=== PATIENT | female | born 1980 | race Caucasian/White ===

== ENCOUNTER 2016-04-29 19:02 | Inpatient (IN) | payer MEDICARE, MEDICAID ==
[~2016-04-29] VITALS: Ht 167.6 cm; Wt 72.7 kg
[~2016-04-29 19:02] MED LIST: ASPI81 PO; CARI350 PO; CITA20TA9 PO; GABA-533 PO; IBUP-1547 PO
[2016-04-29] MEDS ORDERED: ChlorproMAZINE HCL 100 MG TABLET PO PRN (22:45)
[2016-04-29] MEDS ORDERED: DiphenhydrAMINE HCL 50 MG/ML VIAL IM ONE (22:45)
[2016-04-29] MEDS ORDERED: LORazepam 1 MG TABLET PO PRN (22:45)
[2016-04-29] MEDS ORDERED: TEMAZEPAM 15 MG CAPSULE PO PRN (22:45)
[2016-04-29] MEDS ORDERED: LORazepam 2 MG/ML VIAL IM ONE (22:45)
[2016-04-29] MEDS ORDERED: DOCU250C91 PO (23:42)
[2016-04-30 00:35] VITALS: BP 95/56
[2016-04-30] MEDS ORDERED: LORazepam 1 MG TABLET PO PRN ×2 (03:15→04:00)
[2016-04-30] MEDS ORDERED: IBUPROFEN 600 MG TABLET PO PRN (08:45)
[2016-04-30] MEDS ORDERED: MAGNESIUM HYDROXIDE SUSPENSION 30 ML UDCUP PO PRN (08:45)
[2016-04-30] MEDS ORDERED: ONDANSETRON HCL 4 MG TABLET PO PRN (08:45)
[2016-04-30] MEDS ORDERED: BACITRACIN 28.4 GM OINTMENT TP PRN (08:45)
[2016-04-30] MEDS ORDERED: LOPERAMIDE HCL 2 MG CAPSULE PO PRN (08:45)
[2016-04-30] MEDS ORDERED: MAG HYDROX/AL HYDROX/SIMETH ES 30 ML SUSPENSION UDCUP PO PRN (08:45)
[2016-04-30] MEDS ORDERED: CloNIDine HCL 0.1 MG TABLET PO PRN (08:45)
[2016-04-30] MEDS ORDERED: ALBUTEROL SULFATE HFA 90 MCG/PUFF 8 GM INHALER IH PRN (08:45)
[2016-04-30] MEDS ORDERED: PETROLATUM,WHITE 71 GM JELLY TP PRN (08:45)
[2016-04-30] MEDS ORDERED: BENZOCAINE/MENTHOL LOZENGE [8 LOZENGES/PACKET] MM PRN (08:45)
[2016-04-30] MEDS ORDERED: ACETAMINOPHEN 325 MG TABLET PO PRN (08:45)
[2016-04-30] MEDS: SERTRALINE HCL 100 MG TABLET PO SCH ×4 (09:00→20:51)
[2016-04-30] MEDS: DIVALPROEX SODIUM 500 MG ER TABLET PO SCH (09:23)
[2016-04-30] MEDS: CHOLECALCIFEROL (VIT D3) 1,000 UNITS TABLET PO SCH (09:23)
[2016-04-30] MEDS: GABAPENTIN 400 MG CAPSULE PO SCH ×3 (09:23→17:27)
[2016-04-30 10:11] LABS: BASOPHILS % (AUTO) 0.8 % (0.0-2.0); HEMATOCRIT 38.7 % (36-46); HEMOGLOBIN 13.2 g/dL (12.0-16.0); LYMPHOCYTES # (AUTO) 1.3 K/uL (1.0-4.8); LYMPHOCYTES % (AUTO) 27.4 % (22.0-44.0); MEAN CORPUSCULAR HEMOGLOBIN 31.4 pg (26.0-34.0); MEAN CORPUSCULAR HGB CONC 34.1 G/dL (31.0-37.0); MEAN CORPUSCULAR VOLUME 92 fL (80-100); MONOCYTES # (AUTO) 0.5 K/uL (0.1-1.0); MONOCYTES % (AUTO) 10.7 % (2.0-9.0); NEUTROPHILS # (AUTO) 2.8 K/uL (1.8-7.7); NEUTROPHILS % (AUTO) 58.1 % (40.0-70.0); PLATELET COUNT (AUTO) 212 K/uL (150-450); RED BLOOD CELL COUNT(AUTO) 4.21 MIL/uL (4.00-5.20); RED CELL DISTRIBUTION WIDTH 12.1 % (11.5-14.5); WHITE BLOOD COUNT (AUTO) 4.8 K/uL (4.5-11.0)
[2016-04-30 10:53] LABS: ALANINE AMINOTRANSFERASE 32 U/L (12-78); ALBUMIN 3.1 g/dL (3.4-5.0); ANION GAP 4 mmol/L (8-16); ASPARTATE AMINOTRANSFERASE 29 U/L (15-37); BILIRUBIN,TOTAL 0.2 mg/dL (0.1-1.0); CALCIUM, TOTAL 8.5 mg/dL (8.8-10.5); CARBON DIOXIDE 31 mmol/L (22-29); CHLORIDE 103 mmol/L (98-107); CHOL/HDL RATIO 5.4 (3.9-5.7); GLOMERULAR FILTR. RATE CALC > 60 mL/min (>60); POTASSIUM 4.1 mmol/L (3.5-5.1); SODIUM SERUM 138 mmol/L (136-145); TOTAL PROTEIN, SERUM 6.1 g/dL (6.4-8.2); UREA NITROGEN, BLOOD 10 mg/dL (7-18)
[2016-04-30] MEDS ORDERED: MORPHINE SULFATE 60 MG PO PRN (18:45)
[2016-04-30] MEDS: NICOTINE 14 MG/24 HOUR PATCH TD SCH (20:43)
[2016-04-30] MEDS: CARISOPRODOL 350 MG TABLET PO SCH (20:43)
[2016-05-01] VITALS (8 sets, daily range): BP systolic 111–129; BP diastolic 65–92
[2016-05-01] MEDS: HYDROmorphone HCL 2 MG TABLET PO PRN ×4 (01:49→23:49)
[2016-05-01] MEDS: IBUPROFEN 600 MG TABLET PO PRN ×2 (03:44→13:00)
[2016-05-01] MEDS: GABAPENTIN 400 MG CAPSULE PO SCH ×3 (06:07→17:35)
[2016-05-01] MEDS: MORPHINE SULFATE 60 MG PO PRN ×2 (06:47→21:00)
[2016-05-01] MEDS: SERTRALINE HCL 100 MG TABLET PO SCH (08:27)
[2016-05-01] MEDS: DIVALPROEX SODIUM 500 MG ER TABLET PO SCH (08:28)
[2016-05-01] MEDS: CARISOPRODOL 350 MG TABLET PO SCH ×3 (08:28→22:06)
[2016-05-01] MEDS: ASPIRIN 81 MG CHEWABLE TABLET PO SCH (08:28)
[2016-05-01] MEDS: NICOTINE 14 MG/24 HOUR PATCH TD SCH (08:29)
[2016-05-01] MEDS: CHOLECALCIFEROL (VIT D3) 1,000 UNITS TABLET PO SCH (08:29)
[2016-05-01] MEDS ORDERED: IBUPROFEN 600 MG TABLET PO PRN (09:00)
[2016-05-02] VITALS: BP 114/70
[2016-05-02] MEDS: GABAPENTIN 400 MG CAPSULE PO SCH ×3 (07:15→17:15)
[2016-05-02] MEDS: CHOLECALCIFEROL (VIT D3) 1,000 UNITS TABLET PO SCH (08:11)
[2016-05-02] MEDS: ASPIRIN 81 MG CHEWABLE TABLET PO SCH (08:11)
[2016-05-02] MEDS: CARISOPRODOL 350 MG TABLET PO SCH ×3 (08:12→21:26)
[2016-05-02] MEDS: NICOTINE 14 MG/24 HOUR PATCH TD SCH (08:12)
[2016-05-02] MEDS: DIVALPROEX SODIUM 500 MG ER TABLET PO SCH (09:00)
[2016-05-02] MEDS: DULoxetine HCL 30 MG CAPSULE PO SCH (09:00)
[2016-05-02 09:04] VITALS: BP 110/60
[2016-05-02] MEDS: HYDROmorphone HCL 2 MG TABLET PO PRN ×2 (09:11→16:06)
[2016-05-02] MEDS: MORPHINE SULFATE 60 MG PO SCH ×2 (10:29→22:30)
[2016-05-02] MEDS: IBUPROFEN 600 MG TABLET PO PRN ×2 (12:30→18:56)
[2016-05-02 16:06] VITALS: BP 118/71
[2016-05-02] MEDS: DOCUSATE SODIUM 250 MG CAPSULE PO SCH (17:15)
[2016-05-02] MEDS: HydrOXYzine PAMOATE 50 MG CAPSULE PO PRN ×2 (17:30→22:15)
[2016-05-02 18:55] VITALS: BP 117/69
[2016-05-03 03:35] VITALS: BP 105/70
[2016-05-03] MEDS: HYDROmorphone HCL 2 MG TABLET PO PRN ×3 (03:38→19:05)
[2016-05-03] MEDS: GABAPENTIN 400 MG CAPSULE PO SCH ×3 (07:15→16:10)
[2016-05-03] MEDS: CHOLECALCIFEROL (VIT D3) 1,000 UNITS TABLET PO SCH (08:47)
[2016-05-03] MEDS: CARISOPRODOL 350 MG TABLET PO SCH ×3 (08:47→20:26)
[2016-05-03] MEDS: DOCUSATE SODIUM 250 MG CAPSULE PO SCH ×2 (08:47→16:10)
[2016-05-03] MEDS: ASPIRIN 81 MG CHEWABLE TABLET PO SCH (08:48)
[2016-05-03] MEDS: DULoxetine HCL 30 MG CAPSULE PO SCH ×2 (08:48→09:00)
[2016-05-03] MEDS: NICOTINE 14 MG/24 HOUR PATCH TD SCH (08:49)
[2016-05-03] MEDS: SERTRALINE HCL 100 MG TABLET PO SCH (08:49)
[2016-05-03] MEDS: MORPHINE SULFATE 60 MG PO SCH ×2 (08:53→21:15)
[2016-05-03] MEDS ORDERED: ASPIRIN 81 MG CHEWABLE TABLET PO SCH (09:00)
[2016-05-03] MEDS: HydrOXYzine PAMOATE 50 MG CAPSULE PO PRN ×2 (09:10→16:10)
[2016-05-03 12:24] VITALS: BP 139/85
[2016-05-03 16:00] VITALS: BP 116/89
[2016-05-03 19:05] VITALS: BP 113/82
[2016-05-04 00:55] VITALS: BP 116/70
[2016-05-04] MEDS: HYDROmorphone HCL 2 MG TABLET PO PRN ×3 (01:22→16:20)
[2016-05-04] MEDS: IBUPROFEN 600 MG TABLET PO PRN ×4 (01:22→23:45)
[2016-05-04] MEDS: GABAPENTIN 400 MG CAPSULE PO SCH ×3 (06:20→16:07)
[2016-05-04 08:00] VITALS: BP 121/76
[2016-05-04] MEDS: DULoxetine HCL 30 MG CAPSULE PO SCH (09:00)
[2016-05-04] MEDS: MORPHINE SULFATE 60 MG PO SCH ×2 (09:16→20:58)
[2016-05-04] MEDS: HydrOXYzine PAMOATE 50 MG CAPSULE PO PRN (09:17)
[2016-05-04] MEDS: NICOTINE 14 MG/24 HOUR PATCH TD SCH (09:17)
[2016-05-04] MEDS: ASPIRIN 81 MG CHEWABLE TABLET PO SCH (09:17)
[2016-05-04] MEDS: DOCUSATE SODIUM 250 MG CAPSULE PO SCH ×2 (09:17→16:06)
[2016-05-04] MEDS: SERTRALINE HCL 100 MG TABLET PO SCH (09:17)
[2016-05-04] MEDS: CHOLECALCIFEROL (VIT D3) 1,000 UNITS TABLET PO SCH (09:17)
[2016-05-04] MEDS: CARISOPRODOL 350 MG TABLET PO SCH ×3 (09:22→20:58)
[2016-05-04 16:19] VITALS: BP 131/86
[2016-05-05] MEDS: HYDROmorphone HCL 2 MG TABLET PO PRN ×2 (00:41→09:23)
[2016-05-05] MEDS: GABAPENTIN 400 MG CAPSULE PO SCH ×3 (06:19→17:30)
[2016-05-05] MEDS: NICOTINE 14 MG/24 HOUR PATCH TD SCH (09:00)
[2016-05-05] MEDS: MORPHINE SULFATE 60 MG PO SCH ×2 (09:23→22:18)
[2016-05-05] MEDS: DOCUSATE SODIUM 250 MG CAPSULE PO SCH ×2 (09:23→17:30)
[2016-05-05] MEDS: SERTRALINE HCL 100 MG TABLET PO SCH (09:23)
[2016-05-05] MEDS: ASPIRIN 81 MG CHEWABLE TABLET PO SCH (09:23)
[2016-05-05] MEDS: CARISOPRODOL 350 MG TABLET PO SCH ×3 (09:23→22:18)
[2016-05-05] MEDS: IBUPROFEN 600 MG TABLET PO PRN (09:24)
[2016-05-05] MEDS: CHOLECALCIFEROL (VIT D3) 1,000 UNITS TABLET PO SCH (09:28)
[2016-05-06] MEDS: GABAPENTIN 400 MG CAPSULE PO SCH ×3 (06:54→16:24)
[2016-05-06 08:00] VITALS: BP 135/91
[2016-05-06] MEDS: CARISOPRODOL 350 MG TABLET PO SCH ×4 (09:00→20:21)
[2016-05-06] MEDS: ASPIRIN 81 MG CHEWABLE TABLET PO SCH (09:04)
[2016-05-06] MEDS: DOCUSATE SODIUM 250 MG CAPSULE PO SCH ×2 (09:04→16:25)
[2016-05-06] MEDS: MORPHINE SULFATE 60 MG PO SCH ×3 (09:05→22:44)
[2016-05-06] MEDS: CHOLECALCIFEROL (VIT D3) 1,000 UNITS TABLET PO SCH (09:05)
[2016-05-06] MEDS: SERTRALINE HCL 100 MG TABLET PO SCH (09:05)
[2016-05-06] MEDS: NICOTINE 14 MG/24 HOUR PATCH TD SCH (09:15)
[2016-05-06] MEDS: ASPIRIN 81 MG EC TABLET PO SCH (10:28)
[2016-05-06] MEDS: RisperiDONE 0.5 MG TABLET PO SCH ×2 (22:44→22:45)
[2016-05-07] MEDS: GABAPENTIN 400 MG CAPSULE PO SCH ×3 (06:50→16:21)
[2016-05-07] MEDS: RisperiDONE 0.5 MG TABLET PO SCH ×3 (09:00→20:06)
[2016-05-07] MEDS: NICOTINE 14 MG/24 HOUR PATCH TD SCH (09:00)
[2016-05-07] MEDS: DOCUSATE SODIUM 250 MG CAPSULE PO SCH ×3 (09:00→16:20)
[2016-05-07] MEDS: ASPIRIN 81 MG EC TABLET PO SCH ×2 (09:00→09:43)
[2016-05-07] MEDS: MORPHINE SULFATE 60 MG PO SCH ×3 (09:00→20:06)
[2016-05-07] MEDS: SERTRALINE HCL 100 MG TABLET PO SCH ×2 (09:00→09:44)
[2016-05-07] MEDS: CARISOPRODOL 350 MG TABLET PO SCH ×4 (09:00→20:06)
[2016-05-07] MEDS: CHOLECALCIFEROL (VIT D3) 1,000 UNITS TABLET PO SCH (09:43)
[2016-05-07] MEDS: IBUPROFEN 600 MG TABLET PO PRN (09:44)
[2016-05-07] MEDS: HYDROmorphone HCL 2 MG TABLET PO PRN (09:45)
[2016-05-07 11:03] LABS: BASOPHILS % (AUTO) 0.3 % (0.0-2.0); EOSINOPHILS % (AUTO) 0 % (1.0-6.0); HEMATOCRIT 42.2 % (36-46); HEMOGLOBIN 14.4 g/dL (12.0-16.0); LYMPHOCYTES # (AUTO) 1.1 K/uL (1.0-4.8); MEAN CORPUSCULAR HEMOGLOBIN 30.9 pg (26.0-34.0); MEAN CORPUSCULAR HGB CONC 34.1 G/dL (31.0-37.0); MEAN CORPUSCULAR VOLUME 91 fL (80-100); MONOCYTES # (AUTO) 0.6 K/uL (0.1-1.0); NEUTROPHILS # (AUTO) 7.8 K/uL (1.8-7.7); NEUTROPHILS % (AUTO) 81.7 % (40.0-70.0); PLATELET COUNT (AUTO) 332 K/uL (150-450); RED BLOOD CELL COUNT(AUTO) 4.65 MIL/uL (4.00-5.20); RED CELL DISTRIBUTION WIDTH 11.9 % (11.5-14.5); WHITE BLOOD COUNT (AUTO) 9.5 K/uL (4.5-11.0)
[2016-05-07 11:23] LABS: ALANINE AMINOTRANSFERASE 30 U/L (12-78); ALBUMIN 4.2 g/dL (3.4-5.0); ANION GAP 10 mmol/L (8-16); ASPARTATE AMINOTRANSFERASE 22 U/L (15-37); BILIRUBIN,TOTAL 0.4 mg/dL (0.1-1.0); CALCIUM, TOTAL 9.6 mg/dL (8.8-10.5); CARBON DIOXIDE 27 mmol/L (22-29); CHLORIDE 98 mmol/L (98-107); CREATININE 0.75 mg/dL (0.60-1.30); GLOMERULAR FILTR. RATE CALC > 60 mL/min (>60); PHOSPHORUS 1.7 mg/dL (2.5-4.9); POTASSIUM 3.6 mmol/L (3.5-5.1); SODIUM SERUM 135 mmol/L (136-145); TOTAL PROTEIN, SERUM 7.8 g/dL (6.4-8.2); UREA NITROGEN, BLOOD 13 mg/dL (7-18)
[2016-05-07 16:00] VITALS: BP 100/71
[2016-05-07] MEDS: ONDANSETRON HCL 4 MG/2 ML VIAL IM PRN (20:27)
[2016-05-08 03:13] VITALS: BP 128/64
[2016-05-08 04:25] VITALS: BP 115/65
[2016-05-08] MEDS: ONDANSETRON HCL 4 MG/2 ML VIAL IM PRN ×2 (04:51→11:10)
[2016-05-08] MEDS: GABAPENTIN 400 MG CAPSULE PO SCH (06:57)
[2016-05-08 07:03] LABS: AMYLASE 48 U/L (25-115); ANION GAP 15 mmol/L (8-16); CARBON DIOXIDE 25 mmol/L (22-29); CHLORIDE 95 mmol/L (98-107); CREATININE 0.91 mg/dL (0.60-1.30); GLOMERULAR FILTR. RATE CALC > 60 mL/min (>60); SODIUM SERUM 135 mmol/L (136-145); UREA NITROGEN, BLOOD 22 mg/dL (7-18)
[2016-05-08 07:21] LABS: POTASSIUM 2.6 mmol/L (3.5-5.1)
[2016-05-08] MEDS: ASPIRIN 81 MG EC TABLET PO SCH (08:38)
[2016-05-08] MEDS: DOCUSATE SODIUM 250 MG CAPSULE PO SCH (08:38)
[2016-05-08] MEDS: RisperiDONE 0.5 MG TABLET PO SCH (08:39)
[2016-05-08] MEDS: MORPHINE SULFATE 60 MG PO SCH (08:39)
[2016-05-08] MEDS: CHOLECALCIFEROL (VIT D3) 1,000 UNITS TABLET PO SCH (08:39)
[2016-05-08] MEDS: CARISOPRODOL 350 MG TABLET PO SCH (08:39)
[2016-05-08] MEDS: NICOTINE 14 MG/24 HOUR PATCH TD SCH (08:40)
[2016-05-08] MEDS: SERTRALINE HCL 100 MG TABLET PO SCH (08:40)
[2016-05-08] MEDS ORDERED: POTASSIUM CHLORIDE 10% 40 MEQ/30 ML LIQUID UDCUP PO ONE ×3 (09:00→16:00)
== END 2016-05-08 13:54 | disposition short-term general hospital (02) | DRG 885 ==
LOC: EMS 19:07 → 3EC 04-30 00:11
PROVIDERS: ADMIT Psychiatry & Neurology Psychiatry; ATTEND Psychiatry & Neurology Psychiatry
DX: F25.9 Schizoaffective disorder, unspecified (principal); F33.2 Major depressive disorder, recurrent severe without psychotic features; E55.9 Vitamin D deficiency, unspecified; E78.5 Hyperlipidemia, unspecified; F17.200 Nicotine dependence, unspecified, uncomplicated; F43.10 Post-traumatic stress disorder, unspecified; G62.9 Polyneuropathy, unspecified; G89.29 Other chronic pain; I10 Essential (primary) hypertension; I25.10 Atherosclerotic heart disease of native coronary artery without angina pectoris; K21.9 Gastro-esophageal reflux disease without esophagitis; K59.00 Constipation, unspecified; R32 Unspecified urinary incontinence; F41.9 Anxiety disorder, unspecified; Z91.19 Patient's noncompliance with other medical treatment and regimen; Z88.5 Allergy status to narcotic agent; Z79.82 Long term (current) use of aspirin; Z79.899 Other long term (current) drug therapy; I25.2 Old myocardial infarction; Z56.0 Unemployment, unspecified; Z88.4 Allergy status to anesthetic agent
CPT/HCPCS: 83735; 84100; 84443; 87081; 96372; 99285; J1200; J2060; J2405; J3230; J3535; Q0162

== ENCOUNTER 2016-05-08 14:05 | Inpatient (IN) | payer MEDICARE, OTHER ==
[2016-05-08 14:00] VITALS: BP 144/61
[~2016-05-08 14:05] MED LIST changes: +DOCU250C91 PO
[2016-05-08] MEDS ORDERED: HydrOXYzine PAMOATE 50 MG CAPSULE PO PRN (14:45)
[2016-05-08] MEDS ORDERED: ChlorproMAZINE HCL 100 MG TABLET PO PRN (14:45)
[2016-05-08] MEDS ORDERED: ACETAMINOPHEN 325 MG TABLET PO PRN (15:00)
[2016-05-08] MEDS ORDERED: CloNIDine HCL 0.1 MG TABLET PO PRN (15:00)
[2016-05-08] MEDS ORDERED: ALBUTEROL SULFATE HFA 90 MCG/PUFF 8 GM INHALER IH PRN (15:00)
[2016-05-08] MEDS ORDERED: MAGNESIUM HYDROXIDE SUSPENSION 30 ML UDCUP PO PRN ×2 (15:00→17:30)
[2016-05-08] MEDS ORDERED: PETROLATUM,WHITE 71 GM JELLY TP PRN (15:00)
[2016-05-08] MEDS ORDERED: ONDANSETRON HCL 4 MG TABLET PO PRN (15:00)
[2016-05-08] MEDS ORDERED: LOPERAMIDE HCL 2 MG CAPSULE PO PRN (15:00)
[2016-05-08] MEDS ORDERED: BENZOCAINE/MENTHOL LOZENGE [8 LOZENGES/PACKET] MM PRN (15:00)
[2016-05-08] MEDS ORDERED: BACITRACIN 28.4 GM OINTMENT TP PRN (15:00)
[2016-05-08] MEDS ORDERED: ONDANSETRON HCL 4 MG/2 ML VIAL IM PRN (15:00)
[2016-05-08] MEDS ORDERED: IBUPROFEN 600 MG TABLET PO PRN (15:00)
[2016-05-08] MEDS ORDERED: MAG HYDROX/AL HYDROX/SIMETH ES 30 ML SUSPENSION UDCUP PO PRN (15:00)
[2016-05-08 15:56] VITALS: BP 134/73
[2016-05-08] MEDS: CARISOPRODOL 350 MG TABLET PO SCH ×2 (16:00→21:02)
[2016-05-08] MEDS: GABAPENTIN 400 MG CAPSULE PO SCH (16:51)
[2016-05-08] MEDS ORDERED: MAGNESIUM OXIDE 400 MG TABLET PO PRN (17:30)
[2016-05-08] MEDS ORDERED: ZOLPIDEM TARTRATE 5 MG TABLET PO PRN (17:30)
[2016-05-08] MEDS ORDERED: POTASSIUM CHLORIDE 20 MEQ ER TABLET PO PRN (17:30)
[2016-05-08] MEDS ORDERED: ALBUTEROL SULFATE 2.5 MG/0.5 ML NEB SOLUTION NEB PRN (17:30)
[2016-05-08] MEDS ORDERED: MAGNESIUM SULFATE 2 GM in DEXTROSE 5%-WATER 50 ML IV PRN (17:30)
[2016-05-08] MEDS ORDERED: MAGNESIUM SULFATE 4 GM/WATER 100 ML IV PRN (17:30)
[2016-05-08] MEDS ORDERED: IPRATROPIUM BROMIDE 0.5 MG/2.5 ML NEB SOLUTION NEB PRN (17:30)
[2016-05-08] MEDS ORDERED: BISACODYL 10 MG RECTAL RECTAL SUPPOSITORY PR PRN (17:30)
[2016-05-08] MEDS: POTASSIUM CHL 10 MEQ/WATER 50 ML IV PRN ×3 (17:50→22:55)
[2016-05-08] MEDS: DEXTROSE 5%-0.45% SODIUM CHL 1,000 ML IV SCH (17:50)
[2016-05-08 19:49] VITALS: BP 117/59
[2016-05-08] MEDS: RisperiDONE 0.5 MG TABLET PO SCH (21:03)
[2016-05-08] MEDS: HEPARIN SODIUM,PORCINE 5,000 UNITS/ML VIAL SQ SCH (21:03)
[2016-05-08] MEDS: DOCUSATE SODIUM 250 MG CAPSULE PO SCH (21:03)
[2016-05-08] MEDS: MORPHINE SULFATE 60 MG PO SCH (21:03)
[2016-05-08] MEDS: ONDANSETRON HCL 4 MG/2 ML VIAL IVP PRN (21:04)
[2016-05-09 04:00] VITALS: BP 141/70
[2016-05-09 04:35] VITALS: BP 136/91
[2016-05-09] MEDS: ONDANSETRON HCL 4 MG/2 ML VIAL IVP PRN (05:00)
[2016-05-09] MEDS ORDERED: LORazepam 2 MG/ML VIAL IVP PRN (06:15)
[2016-05-09] MEDS ORDERED: 0.9% SODIUM CHLORIDE 10 ML SYRINGE IVP PRN (06:30)
[2016-05-09] MEDS: GABAPENTIN 400 MG CAPSULE PO SCH ×3 (07:00→16:13)
[2016-05-09] MEDS: NICOTINE 14 MG/24 HOUR PATCH TD SCH (09:00)
[2016-05-09] MEDS: RisperiDONE 0.5 MG TABLET PO SCH (09:00)
[2016-05-09 09:09] VITALS: BP 139/72
[2016-05-09 09:25] LABS: BASOPHILS % (AUTO) 0.3 % (0.0-2.0); EOSINOPHILS % (AUTO) 0 % (1.0-6.0); HEMATOCRIT 37.8 % (36-46); HEMOGLOBIN 12.8 g/dL (12.0-16.0); LYMPHOCYTES # (AUTO) 2.1 K/uL (1.0-4.8); LYMPHOCYTES % (AUTO) 16.9 % (22.0-44.0); MEAN CORPUSCULAR HEMOGLOBIN 30.9 pg (26.0-34.0); MEAN CORPUSCULAR HGB CONC 33.9 G/dL (31.0-37.0); MEAN CORPUSCULAR VOLUME 91 fL (80-100); MONOCYTES # (AUTO) 1.4 K/uL (0.1-1.0); MONOCYTES % (AUTO) 11.1 % (2.0-9.0); NEUTROPHILS # (AUTO) 9.1 K/uL (1.8-7.7); NEUTROPHILS % (AUTO) 71.7 % (40.0-70.0); PLATELET COUNT (AUTO) 282 K/uL (150-450); RED BLOOD CELL COUNT(AUTO) 4.15 MIL/uL (4.00-5.20); RED CELL DISTRIBUTION WIDTH 12.3 % (11.5-14.5); WHITE BLOOD COUNT (AUTO) 12.8 K/uL (4.5-11.0)
[2016-05-09 09:41] LABS: ALANINE AMINOTRANSFERASE 26 U/L (12-78); ALBUMIN 3.7 g/dL (3.4-5.0); AMYLASE 68 U/L (25-115); ANION GAP 8 mmol/L (8-16); ASPARTATE AMINOTRANSFERASE 19 U/L (15-37); BILIRUBIN,TOTAL 0.5 mg/dL (0.1-1.0); CALCIUM, TOTAL 8.5 mg/dL (8.8-10.5); CARBON DIOXIDE 32 mmol/L (22-29); CHLORIDE 98 mmol/L (98-107); CREATININE 0.82 mg/dL (0.60-1.30); GLOMERULAR FILTR. RATE CALC > 60 mL/min (>60); PHOSPHORUS 2.8 mg/dL (2.5-4.9); SODIUM SERUM 138 mmol/L (136-145); TOTAL PROTEIN, SERUM 6.8 g/dL (6.4-8.2); UREA NITROGEN, BLOOD 24 mg/dL (7-18)
[2016-05-09 09:54] LABS: POTASSIUM 2.3 mmol/L (3.5-5.1)
[2016-05-09] MEDS: DEXTROSE 5%-0.45% SODIUM CHL 1,000 ML IV SCH ×3 (10:08→22:53)
[2016-05-09] MEDS: POTASSIUM CHL 10 MEQ/WATER 50 ML IV PRN ×8 (10:08→23:14)
[2016-05-09] MEDS: MORPHINE SULFATE 60 MG PO SCH ×2 (10:09→20:42)
[2016-05-09] MEDS: HEPARIN SODIUM,PORCINE 5,000 UNITS/ML VIAL SQ SCH ×3 (10:09→20:48)
[2016-05-09] MEDS: SERTRALINE HCL 100 MG TABLET PO SCH (10:09)
[2016-05-09] MEDS: ASPIRIN 81 MG EC TABLET PO SCH (10:10)
[2016-05-09] MEDS: CHOLECALCIFEROL (VIT D3) 1,000 UNITS TABLET PO SCH (10:10)
[2016-05-09] MEDS: DOCUSATE SODIUM 250 MG CAPSULE PO SCH ×2 (10:10→20:42)
[2016-05-09] MEDS: CARISOPRODOL 350 MG TABLET PO SCH ×3 (10:11→20:44)
[2016-05-09 11:05] VITALS: BP 121/61
[2016-05-09 16:16] VITALS: BP 120/72
[2016-05-09] MEDS: POTASSIUM PHOS/SODIUM PHOS MIXTURE 1 POWDER PACKET PO SCH ×2 (20:41→20:48)
[2016-05-09] MEDS: POTASSIUM CHLORIDE 20 MEQ ER TABLET PO PRN (20:42)
[2016-05-09] MEDS: ARIPiprazole 5 MG TABLET PO SCH (20:42)
[2016-05-09 23:14] VITALS: BP 109/66
[2016-05-10 00:29] LABS: APPEARANCE,URINE CLEAR (CLEAR); GLUCOSE, URINE (UA) NEGATIVE (NEGATIVE); KETONES,URINE NEGATIVE (NEGATIVE); LEUKOCYTE ESTERASE ,URINE NEGATIVE (NEGATIVE); OCCULT BLOOD,URINE SMALL (NEGATIVE); PROTEIN,URINE NEGATIVE (NEGATIVE)
[2016-05-10 00:30] LABS: ADD UA MICROSCOPIC YES
[2016-05-10 00:36] LABS: SQUAMOUS EPITHELIAL CELL,UR Few /LPF (None Seen); WBC,URINE None Seen /HPF (0-5)
[2016-05-10] MEDS: DEXTROSE 5%-0.45% SODIUM CHL 1,000 ML IV SCH ×2 (02:42→10:07)
[2016-05-10] MEDS: GABAPENTIN 400 MG CAPSULE PO SCH ×3 (07:00→17:00)
[2016-05-10] MEDS: ASPIRIN 81 MG EC TABLET PO SCH (09:00)
[2016-05-10] MEDS: NICOTINE 14 MG/24 HOUR PATCH TD SCH (09:00)
[2016-05-10] MEDS: SERTRALINE HCL 100 MG TABLET PO SCH (09:00)
[2016-05-10] MEDS: CARISOPRODOL 350 MG TABLET PO SCH ×3 (09:00→20:22)
[2016-05-10] MEDS: POTASSIUM PHOS/SODIUM PHOS MIXTURE 1 POWDER PACKET PO SCH ×4 (09:00→20:23)
[2016-05-10] MEDS: MORPHINE SULFATE 60 MG PO SCH ×2 (09:00→20:22)
[2016-05-10] MEDS: CHOLECALCIFEROL (VIT D3) 1,000 UNITS TABLET PO SCH (09:00)
[2016-05-10] MEDS: HEPARIN SODIUM,PORCINE 5,000 UNITS/ML VIAL SQ SCH ×2 (09:00→20:23)
[2016-05-10] MEDS: DOCUSATE SODIUM 250 MG CAPSULE PO SCH ×2 (09:00→20:22)
[2016-05-10] MEDS: DOCOSANOL 10% 2 GM CREAM TP SCH ×4 (10:00→20:27)
[2016-05-10] MEDS: POTASSIUM CHLORIDE 20 MEQ ER TABLET PO PRN ×2 (15:48→20:23)
[2016-05-10] MEDS ORDERED: INFLUENZA VIRUS VACCINE QVS 2016-17 (3YR+)/PF 60 MCG/0.5 ML SYRINGE IM ONE (18:00)
[2016-05-10] MEDS: ARIPiprazole 5 MG TABLET PO SCH (20:22)
[2016-05-10 23:20] VITALS: BP 118/67
[2016-05-11 04:00] VITALS: BP 102/63
[2016-05-11] MEDS: DEXTROSE 5%-0.45% SODIUM CHL 1,000 ML IV SCH ×2 (06:07→16:07)
[2016-05-11] MEDS: DOCOSANOL 10% 2 GM CREAM TP SCH ×3 (06:14→14:00)
[2016-05-11] MEDS: GABAPENTIN 400 MG CAPSULE PO SCH ×2 (06:15→13:00)
[2016-05-11] MEDS: DOCUSATE SODIUM 250 MG CAPSULE PO SCH (08:36)
[2016-05-11] MEDS: ASPIRIN 81 MG EC TABLET PO SCH (08:37)
[2016-05-11] MEDS: CHOLECALCIFEROL (VIT D3) 1,000 UNITS TABLET PO SCH (08:37)
[2016-05-11] MEDS: CARISOPRODOL 350 MG TABLET PO SCH ×2 (08:37→16:00)
[2016-05-11] MEDS: HEPARIN SODIUM,PORCINE 5,000 UNITS/ML VIAL SQ SCH (08:37)
[2016-05-11] MEDS: POTASSIUM PHOS/SODIUM PHOS MIXTURE 1 POWDER PACKET PO SCH ×3 (08:37→16:00)
[2016-05-11] MEDS: MORPHINE SULFATE 60 MG PO SCH (08:37)
[2016-05-11] MEDS: NICOTINE 14 MG/24 HOUR PATCH TD SCH (08:38)
[2016-05-11] MEDS: SERTRALINE HCL 100 MG TABLET PO SCH (09:00)
[2016-05-11 14:51] LABS: BASOPHILS % (AUTO) 0.6 % (0.0-2.0); EOSINOPHILS % (AUTO) 3.3 % (1.0-6.0); HEMOGLOBIN 12.4 g/dL (12.0-16.0); LYMPHOCYTES # (AUTO) 1.5 K/uL (1.0-4.8); MEAN CORPUSCULAR HEMOGLOBIN 30.9 pg (26.0-34.0); MEAN CORPUSCULAR HGB CONC 33.4 G/dL (31.0-37.0); MEAN CORPUSCULAR VOLUME 92 fL (80-100); MONOCYTES # (AUTO) 0.4 K/uL (0.1-1.0); MONOCYTES % (AUTO) 8.7 % (2.0-9.0); NEUTROPHILS # (AUTO) 2.6 K/uL (1.8-7.7); NEUTROPHILS % (AUTO) 55.4 % (40.0-70.0); PLATELET COUNT (AUTO) 262 K/uL (150-450); RED BLOOD CELL COUNT(AUTO) 4.01 MIL/uL (4.00-5.20); RED CELL DISTRIBUTION WIDTH 12.3 % (11.5-14.5); WHITE BLOOD COUNT (AUTO) 4.8 K/uL (4.5-11.0)
[2016-05-11 15:07] LABS: ALANINE AMINOTRANSFERASE 133 U/L (12-78); ALBUMIN 3.1 g/dL (3.4-5.0); ANION GAP 6 mmol/L (8-16); ASPARTATE AMINOTRANSFERASE 50 U/L (15-37); BILIRUBIN,TOTAL 0.2 mg/dL (0.1-1.0); CALCIUM, TOTAL 8.3 mg/dL (8.8-10.5); CARBON DIOXIDE 29 mmol/L (22-29); CHLORIDE 104 mmol/L (98-107); CREATININE 0.71 mg/dL (0.60-1.30); GLOMERULAR FILTR. RATE CALC > 60 mL/min (>60); PHOSPHORUS 3.1 mg/dL (2.5-4.9); SODIUM SERUM 139 mmol/L (136-145); TOTAL PROTEIN, SERUM 6.1 g/dL (6.4-8.2); UREA NITROGEN, BLOOD 8 mg/dL (7-18)
[2016-05-11 15:17] VITALS: BP 100/53
== END 2016-05-11 17:02 | DRG 641 ==
LOC: 6N 14:17
PROVIDERS: ADMIT Internal Medicine; ATTEND Internal Medicine
DX: E87.6 Hypokalemia (principal); F11.23 Opioid dependence with withdrawal; E44.1 Mild protein-calorie malnutrition; F33.3 Major depressive disorder, recurrent, severe with psychotic symptoms; E87.1 Hypo-osmolality and hyponatremia; R56.9 Unspecified convulsions; F29 Unspecified psychosis not due to a substance or known physiological condition; M51.9 Unspecified thoracic, thoracolumbar and lumbosacral intervertebral disc disorder; E55.9 Vitamin D deficiency, unspecified; E86.0 Dehydration; M51.16 Intervertebral disc disorders with radiculopathy, lumbar region; F41.8 Other specified anxiety disorders; F43.10 Post-traumatic stress disorder, unspecified; G89.29 Other chronic pain; K21.9 Gastro-esophageal reflux disease without esophagitis; K29.70 Gastritis, unspecified, without bleeding; Z88.5 Allergy status to narcotic agent; Z79.82 Long term (current) use of aspirin; Z79.899 Other long term (current) drug therapy; Z87.891 Personal history of nicotine dependence
CPT/HCPCS: 83735; 84100; 84132; J1644; J2405; J3480; J3535

== ENCOUNTER 2016-12-17 19:49 | Inpatient (IN) | payer MEDICARE, MEDICAID ==
[~2016-12-17] VITALS: Ht 167.6 cm; Wt 72.6 kg
[~2016-12-17 19:49] MED LIST changes: -IBUP-1547 PO; +IBUP-2071 PO
[2016-12-17] MEDS ORDERED: METH750T3 PO (20:16)
[2016-12-17] MEDS ORDERED: ASPI-1182 PO (20:16)
[2016-12-17] MEDS ORDERED: LORA2TAB2 PO (20:16)
[2016-12-17] MEDS ORDERED: HYDR2 PO (20:16)
[2016-12-17 20:22] LABS: BASOPHILS % (AUTO) 0.5 % (0.0-2.0); EOSINOPHILS % (AUTO) 1.8 % (1.0-6.0); HEMATOCRIT 37.7 % (36-46); LYMPHOCYTES # (AUTO) 2.1 K/uL (1.0-4.8); LYMPHOCYTES % (AUTO) 32.4 % (22.0-44.0); MEAN CORPUSCULAR HEMOGLOBIN 32.1 pg (26.0-34.0); MEAN CORPUSCULAR HGB CONC 34.5 G/dL (31.0-37.0); MEAN CORPUSCULAR VOLUME 93 fL (80-100); MONOCYTES # (AUTO) 0.6 K/uL (0.1-1.0); MONOCYTES % (AUTO) 8.9 % (2.0-9.0); NEUTROPHILS # (AUTO) 3.7 K/uL (1.8-7.7); NEUTROPHILS % (AUTO) 56.4 % (40.0-70.0); PLATELET COUNT (AUTO) 242 K/uL (150-450); RED BLOOD CELL COUNT(AUTO) 4.06 MIL/uL (4.00-5.20); RED CELL DISTRIBUTION WIDTH 12.9 % (11.5-14.5); WHITE BLOOD COUNT (AUTO) 6.5 K/uL (4.5-11.0)
[2016-12-17 20:29] LABS: ANION GAP 12 mmol/L (8-16); CARBON DIOXIDE 25 mmol/L (22-29); CHLORIDE 104 mmol/L (98-107); CREATININE 0.85 mg/dL (0.60-1.30); GLOMERULAR FILTR. RATE CALC > 60 mL/min (>60); POTASSIUM 3.7 mmol/L (3.5-5.1); SODIUM SERUM 141 mmol/L (136-145); UREA NITROGEN, BLOOD 9 mg/dL (7-18)
[2016-12-17 20:35] LABS: ALANINE AMINOTRANSFERASE 12 U/L (12-78); ALBUMIN 3.9 g/dL (3.4-5.0); ASPARTATE AMINOTRANSFERASE 13 U/L (15-37); BILIRUBIN,TOTAL 0.5 mg/dL (0.1-1.0); TOTAL PROTEIN, SERUM 7.1 g/dL (6.4-8.2)
[2016-12-17] MEDS ORDERED: LORazepam 2 MG/ML VIAL IM ONE (21:00)
[2016-12-17] MEDS ORDERED: HALOPERIDOL 5 MG TABLET PO PRN (21:00)
[2016-12-17] MEDS ORDERED: DiphenhydrAMINE HCL 50 MG/ML VIAL IM ONE (21:00)
[2016-12-17] MEDS ORDERED: HALOPERIDOL LACTATE 5 MG/ML VIAL IM ONE (21:00)
[2016-12-18] VITALS: BP 112/70
[2016-12-18] MEDS: LORazepam 2 MG TABLET PO PRN ×2 (00:04→08:39)
[2016-12-18] MEDS ORDERED: PNEUMOCOCCAL VACCINE POLYVALENT 0.5 ML VIAL [PPSV23] IM ONE (01:00)
[2016-12-18 07:17] VITALS: BP 117/69
[2016-12-18 08:00] VITALS: BP 133/63
[2016-12-18] MEDS: IBUPROFEN 600 MG TABLET PO PRN ×2 (08:35→18:04)
[2016-12-18] MEDS: SERTRALINE HCL 100 MG TABLET PO SCH (09:00)
[2016-12-18] MEDS: DULoxetine HCL 30 MG CAPSULE PO SCH (09:00)
[2016-12-18] MEDS ORDERED: RisperiDONE 1 MG TABLET PO SCH (09:00)
[2016-12-18] MEDS ORDERED: DIVALPROEX SODIUM 500 MG ER TABLET PO ONE (09:00)
[2016-12-18] MEDS: NICOTINE 7 MG/24 HOUR PATCH TD SCH (12:38)
[2016-12-18] MEDS: GABAPENTIN 400 MG CAPSULE PO SCH ×2 (12:39→17:17)
[2016-12-18 16:00] VITALS: BP 113/70
[2016-12-18] MEDS: METHOCARBAMOL 500 MG TABLET PO SCH (17:11)
[2016-12-18 18:02] VITALS: BP 112/75
[2016-12-18 19:04] VITALS: BP 115/78
[2016-12-18] MEDS: RisperiDONE 1 MG TABLET PO SCH (21:00)
[2016-12-18] MEDS: ACETAMINOPHEN 325 MG TABLET PO PRN (21:52)
[2016-12-19 06:56] VITALS: BP 110/62
[2016-12-19] MEDS: ASPIRIN 81 MG EC TABLET PO SCH (08:49)
[2016-12-19] MEDS: GABAPENTIN 400 MG CAPSULE PO SCH ×3 (08:49→16:02)
[2016-12-19] MEDS: METHOCARBAMOL 500 MG TABLET PO SCH ×2 (08:51→16:01)
[2016-12-19] MEDS: SERTRALINE HCL 100 MG TABLET PO SCH (09:00)
[2016-12-19] MEDS: DULoxetine HCL 30 MG CAPSULE PO SCH (09:00)
[2016-12-19] MEDS: RisperiDONE 1 MG TABLET PO SCH ×2 (09:00→21:00)
[2016-12-19] MEDS: NICOTINE 7 MG/24 HOUR PATCH TD SCH (09:04)
[2016-12-19] MEDS ORDERED: BISACODYL 5 MG EC TABLET PO PRN (09:45)
[2016-12-19] MEDS: LORazepam 2 MG TABLET PO PRN ×3 (09:54→19:10)
[2016-12-19 16:15] VITALS: BP 118/65
[2016-12-19] MEDS: ZOLPIDEM TARTRATE 10 MG TABLET PO PRN (21:04)
[2016-12-19 22:43] VITALS: BP 121/63
[2016-12-19] MEDS: IBUPROFEN 600 MG TABLET PO PRN (22:43)
[2016-12-20] MEDS: LORazepam 2 MG TABLET PO PRN (01:12)
[2016-12-20 01:15] VITALS: BP 125/90
[2016-12-20 08:08] VITALS: BP 105/64
[2016-12-20] MEDS: RisperiDONE 1 MG TABLET PO SCH ×3 (09:00→20:20)
[2016-12-20] MEDS: DULoxetine HCL 30 MG CAPSULE PO SCH ×2 (09:00→09:19)
[2016-12-20] MEDS: CITALOPRAM HYDROBROMIDE 20 MG TABLET PO SCH (09:19)
[2016-12-20] MEDS: GABAPENTIN 400 MG CAPSULE PO SCH ×3 (09:19→16:18)
[2016-12-20] MEDS: ASPIRIN 81 MG EC TABLET PO SCH (09:20)
[2016-12-20] MEDS: METHOCARBAMOL 500 MG TABLET PO SCH ×2 (09:55→16:18)
[2016-12-20] MEDS: NICOTINE 7 MG/24 HOUR PATCH TD SCH (10:01)
[2016-12-20] MEDS: LORazepam 1 MG TABLET PO PRN ×3 (10:06→20:20)
[2016-12-20] MEDS ORDERED: TraMADol HCL 50 MG TABLET PO PRN (15:45)
[2016-12-20 16:00] VITALS: BP 103/60
[2016-12-20] MEDS: IBUPROFEN 600 MG TABLET PO PRN (17:23)
[2016-12-20] MEDS: ZOLPIDEM TARTRATE 10 MG TABLET PO PRN (22:07)
[2016-12-20] MEDS: ACETAMINOPHEN 325 MG TABLET PO PRN (22:09)
[2016-12-21] MEDS: DULoxetine HCL 30 MG CAPSULE PO SCH (09:00)
[2016-12-21] MEDS: GABAPENTIN 400 MG CAPSULE PO SCH ×4 (09:09→21:22)
[2016-12-21] MEDS: CITALOPRAM HYDROBROMIDE 20 MG TABLET PO SCH (09:09)
[2016-12-21] MEDS: RisperiDONE 1 MG TABLET PO SCH (09:10)
[2016-12-21] MEDS: METHOCARBAMOL 500 MG TABLET PO SCH ×2 (09:10→16:58)
[2016-12-21] MEDS: ASPIRIN 81 MG EC TABLET PO SCH (09:10)
[2016-12-21] MEDS: NICOTINE 7 MG/24 HOUR PATCH TD SCH (09:11)
[2016-12-21] MEDS: LORazepam 1 MG TABLET PO PRN ×3 (09:16→20:17)
[2016-12-21 09:37] VITALS: BP 121/69
[2016-12-21] MEDS: PROMETHAZINE HCL 25 MG TABLET PO PRN ×2 (13:57→21:22)
[2016-12-21] MEDS: ACETAMINOPHEN 325 MG TABLET PO PRN (14:30)
[2016-12-21 16:06] VITALS: BP 125/76
[2016-12-21 20:16] VITALS: BP 118/78
[2016-12-21] MEDS: IBUPROFEN 600 MG TABLET PO PRN (20:19)
[2016-12-21] MEDS: RisperiDONE 2 MG TABLET PO SCH (21:22)
[2016-12-21] MEDS: ZOLPIDEM TARTRATE 10 MG TABLET PO PRN (22:26)
[2016-12-22] MEDS: RisperiDONE 2 MG TABLET PO SCH ×2 (09:00→20:58)
[2016-12-22] MEDS: GABAPENTIN 400 MG CAPSULE PO SCH ×4 (09:55→20:45)
[2016-12-22] MEDS: CITALOPRAM HYDROBROMIDE 20 MG TABLET PO SCH (09:55)
[2016-12-22] MEDS: METHOCARBAMOL 500 MG TABLET PO SCH ×2 (09:55→16:47)
[2016-12-22] MEDS: ASPIRIN 81 MG EC TABLET PO SCH (09:55)
[2016-12-22] MEDS: PROMETHAZINE HCL 25 MG TABLET PO PRN (09:56)
[2016-12-22] MEDS: NICOTINE 7 MG/24 HOUR PATCH TD SCH (09:56)
[2016-12-22] MEDS: LORazepam 1 MG TABLET PO PRN (09:56)
[2016-12-22 10:05] VITALS: BP 119/64
[2016-12-22] MEDS ORDERED: HALOPERIDOL LACTATE 5 MG/ML VIAL ONE (15:36)
[2016-12-22] MEDS ORDERED: LORazepam 2 MG/ML VIAL ONE (15:36)
[2016-12-22] MEDS ORDERED: DiphenhydrAMINE HCL 50 MG/ML VIAL ONE (15:36)
[2016-12-22] MEDS ORDERED: DiphenhydrAMINE HCL 50 MG/ML VIAL IM ONE (15:45)
[2016-12-22] MEDS ORDERED: HALOPERIDOL LACTATE 5 MG/ML VIAL IM ONE (15:45)
[2016-12-22] MEDS ORDERED: LORazepam 2 MG/ML VIAL IM ONE (15:45)
[2016-12-22 16:06] VITALS: BP 123/81
[2016-12-22] MEDS: IBUPROFEN 600 MG TABLET PO PRN (17:01)
[2016-12-23 08:00] VITALS: BP 110/66
[2016-12-23] MEDS: RisperiDONE 2 MG TABLET PO SCH ×2 (09:00→20:07)
[2016-12-23] MEDS: CITALOPRAM HYDROBROMIDE 20 MG TABLET PO SCH (09:23)
[2016-12-23] MEDS: GABAPENTIN 400 MG CAPSULE PO SCH ×4 (09:23→20:06)
[2016-12-23] MEDS: ASPIRIN 81 MG EC TABLET PO SCH (09:23)
[2016-12-23] MEDS: METHOCARBAMOL 500 MG TABLET PO SCH ×2 (09:24→16:01)
[2016-12-23] MEDS: NICOTINE 7 MG/24 HOUR PATCH TD SCH (09:24)
[2016-12-23] MEDS: LORazepam 1 MG TABLET PO PRN ×3 (10:08→20:06)
[2016-12-23] MEDS: PROMETHAZINE HCL 25 MG TABLET PO PRN (10:11)
[2016-12-23] MEDS: IBUPROFEN 600 MG TABLET PO PRN ×2 (10:14→21:24)
[2016-12-23] MEDS: ACETAMINOPHEN 325 MG TABLET PO PRN (12:40)
[2016-12-23 16:03] VITALS: BP 110/77
[2016-12-23] MEDS: ZOLPIDEM TARTRATE 10 MG TABLET PO PRN (21:24)
[2016-12-24] VITALS (7 sets, daily range): BP systolic 109–126; BP diastolic 70–76
[2016-12-24] MEDS: METHOCARBAMOL 500 MG TABLET PO SCH ×2 (08:35→16:13)
[2016-12-24] MEDS: CITALOPRAM HYDROBROMIDE 20 MG TABLET PO SCH (08:35)
[2016-12-24] MEDS: GABAPENTIN 400 MG CAPSULE PO SCH ×4 (08:35→20:16)
[2016-12-24] MEDS: ASPIRIN 81 MG EC TABLET PO SCH (08:36)
[2016-12-24] MEDS: NICOTINE 7 MG/24 HOUR PATCH TD SCH (08:36)
[2016-12-24] MEDS: RisperiDONE 2 MG TABLET PO SCH ×2 (08:40→20:16)
[2016-12-24] MEDS: LORazepam 1 MG TABLET PO PRN ×3 (08:43→20:16)
[2016-12-24] MEDS: IBUPROFEN 600 MG TABLET PO PRN ×2 (08:43→14:51)
[2016-12-24 09:34] LABS: ALANINE AMINOTRANSFERASE 10 U/L (12-78); ALBUMIN 3.9 g/dL (3.4-5.0); ANION GAP 7 mmol/L (8-16); ASPARTATE AMINOTRANSFERASE 11 U/L (15-37); BILIRUBIN,TOTAL 0.4 mg/dL (0.1-1.0); CALCIUM, TOTAL 8.7 mg/dL (8.8-10.5); CARBON DIOXIDE 28 mmol/L (22-29); CHLORIDE 103 mmol/L (98-107); CREATININE 0.84 mg/dL (0.60-1.30); GLOMERULAR FILTR. RATE CALC > 60 mL/min (>60); SODIUM SERUM 138 mmol/L (136-145); TOTAL PROTEIN, SERUM 7.1 g/dL (6.4-8.2); UREA NITROGEN, BLOOD 14 mg/dL (7-18)
[2016-12-24 09:36] LABS: CREATINE KINASE, TOTAL 38 U/L (26-192)
[2016-12-24] MEDS: PROMETHAZINE HCL 25 MG TABLET PO PRN ×2 (10:05→16:15)
[2016-12-24] MEDS: ACETAMINOPHEN 325 MG TABLET PO PRN (10:05)
[2016-12-24] MEDS ORDERED: HALOPERIDOL LACTATE 5 MG/ML VIAL IM PRN (20:45)
[2016-12-25 06:31] LABS: HEPATITIS Bs ANTIGEN SCREEN P Negative (Negative); HEPATITIS C AB SCREEN 0.1 s/co ratio (0.0-0.9)
[2016-12-25 06:53] VITALS: BP 121/63
[2016-12-25] MEDS: GABAPENTIN 400 MG CAPSULE PO SCH ×4 (08:13→20:16)
[2016-12-25] MEDS: METHOCARBAMOL 500 MG TABLET PO SCH ×2 (08:13→16:20)
[2016-12-25] MEDS: ASPIRIN 81 MG EC TABLET PO SCH (08:13)
[2016-12-25] MEDS: CITALOPRAM HYDROBROMIDE 20 MG TABLET PO SCH (08:13)
[2016-12-25] MEDS: RisperiDONE 2 MG TABLET PO SCH ×2 (08:13→20:16)
[2016-12-25] MEDS: NICOTINE 7 MG/24 HOUR PATCH TD SCH (08:14)
[2016-12-25] MEDS: LORazepam 1 MG TABLET PO PRN ×3 (08:22→20:22)
[2016-12-25] MEDS: PROMETHAZINE HCL 25 MG TABLET PO PRN ×2 (08:22→16:49)
[2016-12-25] MEDS: IBUPROFEN 600 MG TABLET PO PRN ×2 (08:24→20:38)
[2016-12-25 16:00] VITALS: BP 128/72
[2016-12-25] MEDS: ZOLPIDEM TARTRATE 10 MG TABLET PO PRN (21:17)
[2016-12-26 08:37] LABS: APPEARANCE,URINE CLEAR (CLEAR); GLUCOSE, URINE (UA) NEGATIVE (NEGATIVE); KETONES,URINE NEGATIVE (NEGATIVE); LEUKOCYTE ESTERASE ,URINE NEGATIVE (NEGATIVE); OCCULT BLOOD,URINE NEGATIVE (NEGATIVE); PH,URINE 7.5 (5.0-8.0); PROTEIN,URINE NEGATIVE (NEGATIVE)
[2016-12-26 08:40] LABS: ADD UA MICROSCOPIC NO
[2016-12-26] MEDS: GABAPENTIN 400 MG CAPSULE PO SCH ×4 (09:41→20:33)
[2016-12-26] MEDS: ASPIRIN 81 MG EC TABLET PO SCH (09:41)
[2016-12-26] MEDS: NICOTINE 7 MG/24 HOUR PATCH TD SCH (09:41)
[2016-12-26] MEDS: CITALOPRAM HYDROBROMIDE 20 MG TABLET PO SCH (09:41)
[2016-12-26] MEDS: PROMETHAZINE HCL 25 MG TABLET PO PRN (09:42)
[2016-12-26] MEDS: RisperiDONE 2 MG TABLET PO SCH (09:42)
[2016-12-26] MEDS: LORazepam 1 MG TABLET PO PRN ×3 (09:42→19:36)
[2016-12-26] MEDS: METHOCARBAMOL 500 MG TABLET PO SCH ×2 (09:42→16:33)
[2016-12-26] MEDS ORDERED: RisperiDONE 1 MG TABLET PO ONE (10:00)
[2016-12-26] MEDS: IBUPROFEN 600 MG TABLET PO PRN ×2 (13:53→20:33)
[2016-12-26 20:33] VITALS: BP 126/75
[2016-12-26] MEDS: RisperiDONE 3 MG TABLET PO SCH (20:35)
[2016-12-26] MEDS: ZOLPIDEM TARTRATE 10 MG TABLET PO PRN (21:41)
[2016-12-27 08:31] VITALS: BP 127/77
[2016-12-27] MEDS: NICOTINE 7 MG/24 HOUR PATCH TD SCH (09:27)
[2016-12-27] MEDS: GABAPENTIN 400 MG CAPSULE PO SCH ×4 (09:27→20:24)
[2016-12-27] MEDS: METHOCARBAMOL 500 MG TABLET PO SCH ×2 (09:27→16:47)
[2016-12-27] MEDS: LORazepam 1 MG TABLET PO PRN ×3 (09:28→20:59)
[2016-12-27] MEDS: RisperiDONE 3 MG TABLET PO SCH ×2 (09:28→20:25)
[2016-12-27] MEDS: CITALOPRAM HYDROBROMIDE 20 MG TABLET PO SCH (09:28)
[2016-12-27] MEDS: ASPIRIN 81 MG EC TABLET PO SCH (09:28)
[2016-12-27] MEDS: IBUPROFEN 600 MG TABLET PO PRN ×2 (09:54→16:47)
[2016-12-27 16:00] VITALS: BP 131/86
[2016-12-28] MEDS: ASPIRIN 81 MG EC TABLET PO SCH (08:11)
[2016-12-28] MEDS: RisperiDONE 3 MG TABLET PO SCH ×2 (08:11→20:08)
[2016-12-28] MEDS: GABAPENTIN 400 MG CAPSULE PO SCH ×4 (08:11→20:08)
[2016-12-28] MEDS: LORazepam 1 MG TABLET PO PRN ×3 (08:12→20:22)
[2016-12-28] MEDS: METHOCARBAMOL 500 MG TABLET PO SCH ×2 (08:12→16:16)
[2016-12-28] MEDS: CITALOPRAM HYDROBROMIDE 20 MG TABLET PO SCH (08:12)
[2016-12-28] MEDS: NICOTINE 7 MG/24 HOUR PATCH TD SCH (08:12)
[2016-12-28] MEDS: PROMETHAZINE HCL 25 MG TABLET PO PRN ×2 (09:07→16:16)
[2016-12-28] MEDS: IBUPROFEN 600 MG TABLET PO PRN (13:45)
[2016-12-29] MEDS: METHOCARBAMOL 500 MG TABLET PO SCH ×2 (08:17→16:11)
[2016-12-29] MEDS: RisperiDONE 3 MG TABLET PO SCH ×2 (08:18→20:10)
[2016-12-29] MEDS: NICOTINE 7 MG/24 HOUR PATCH TD SCH (08:18)
[2016-12-29] MEDS: PROMETHAZINE HCL 25 MG TABLET PO PRN ×2 (08:18→16:12)
[2016-12-29] MEDS: ASPIRIN 81 MG EC TABLET PO SCH (08:18)
[2016-12-29] MEDS: GABAPENTIN 400 MG CAPSULE PO SCH ×4 (08:18→20:10)
[2016-12-29] MEDS: LORazepam 1 MG TABLET PO PRN ×3 (08:18→20:31)
[2016-12-29] MEDS: CITALOPRAM HYDROBROMIDE 20 MG TABLET PO SCH (08:18)
[2016-12-29] MEDS: IBUPROFEN 600 MG TABLET PO PRN ×2 (12:17→20:31)
[2016-12-29 16:27] VITALS: BP 121/69
[2016-12-30] MEDS: CITALOPRAM HYDROBROMIDE 20 MG TABLET PO SCH (09:08)
[2016-12-30] MEDS: METHOCARBAMOL 500 MG TABLET PO SCH (09:08)
[2016-12-30] MEDS: GABAPENTIN 400 MG CAPSULE PO SCH ×2 (09:08→13:33)
[2016-12-30] MEDS: NICOTINE 7 MG/24 HOUR PATCH TD SCH (09:09)
[2016-12-30] MEDS: RisperiDONE 3 MG TABLET PO SCH (09:09)
[2016-12-30] MEDS: ASPIRIN 81 MG EC TABLET PO SCH (09:09)
[2016-12-30] MEDS: IBUPROFEN 600 MG TABLET PO PRN (09:18)
[2016-12-30] MEDS: LORazepam 1 MG TABLET PO PRN ×2 (09:18→13:36)
[2016-12-30] MEDS ORDERED: RISP3 PO (10:09)
[2016-12-30] MEDS ORDERED: MET750 PO (10:09)
[2016-12-30] MEDS: ACETAMINOPHEN 325 MG TABLET PO PRN (13:43)
== END 2016-12-30 15:30 | disposition home or self-care (01) | DRG 885 ==
LOC: EMS 19:52 → B3A 21:59
DX: F25.1 Schizoaffective disorder, depressive type (principal); F11.20 Opioid dependence, uncomplicated; I10 Essential (primary) hypertension; E55.9 Vitamin D deficiency, unspecified; F17.210 Nicotine dependence, cigarettes, uncomplicated; F31.9 Bipolar disorder, unspecified; G89.4 Chronic pain syndrome; I25.10 Atherosclerotic heart disease of native coronary artery without angina pectoris; E87.6 Hypokalemia; K21.9 Gastro-esophageal reflux disease without esophagitis; K59.00 Constipation, unspecified; M54.16 Radiculopathy, lumbar region; Z65.3 Problems related to other legal circumstances; Z76.5 Malingerer [conscious simulation]; Z79.899 Other long term (current) drug therapy; Z80.3 Family history of malignant neoplasm of breast; Z91.19 Patient's noncompliance with other medical treatment and regimen; Z88.5 Allergy status to narcotic agent; I25.2 Old myocardial infarction; Z79.82 Long term (current) use of aspirin
CPT/HCPCS: 80074; 80307; 83735; 96372; 99285; G0480; J1200; J1630; J2060

== ENCOUNTER 2017-01-27 11:27 | Inpatient (IN) | payer MEDICARE, MEDICAID ==
[~2017-01-27] VITALS: Ht 172.7 cm; Wt 71.2 kg
[~2017-01-27 11:27] MED LIST changes: +ASPI-1182 PO; -ASPI81 PO; -CARI350 PO; -DOCU250C91 PO; -IBUP-2071 PO; +MET750 PO; +RISP3 PO
[2017-01-27 12:10] LABS: BASOPHILS # (AUTO) 0.03 K/uL (0.00-0.20); BASOPHILS % (AUTO) 0.4 % (0.0-2.0); EOSINOPHILS % (AUTO) 1.49 % (1.0-6.0); HEMATOCRIT 40.5 % (36-46); HEMOGLOBIN 13.5 g/dL (12.0-16.0); LYMPHOCYTES # (AUTO) 1.5 K/uL (1.0-4.8); LYMPHOCYTES % (AUTO) 23.1 % (22.0-44.0); MEAN CORPUSCULAR HGB CONC 33.3 G/dL (31.0-37.0); MEAN CORPUSCULAR VOLUME 96 fL (80-100); MONOCYTES # (AUTO) 0.7 K/uL (0.1-1.0); MONOCYTES % (AUTO) 11.1 % (2.0-9.0); NEUTROPHILS # (AUTO) 4.2 K/uL (1.8-7.7); NEUTROPHILS % (AUTO) 63.8 % (40.0-70.0); PLATELET COUNT (AUTO) 272 K/uL (150-450); RED BLOOD CELL COUNT(AUTO) 4.23 MIL/uL (4.00-5.20); RED CELL DISTRIBUTION WIDTH 13.9 % (11.5-14.5)
[2017-01-27 12:16] LABS: ANION GAP 5 mmol/L (8-16); CARBON DIOXIDE 31 mmol/L (22-29); CHLORIDE 105 mmol/L (98-107); GLOMERULAR FILTR. RATE CALC > 60 mL/min (>60); GLUCOSE,RANDOM 102 mg/dL (70-110); POTASSIUM 4.2 mmol/L (3.5-5.1); SODIUM SERUM 141 mmol/L (136-145); UREA NITROGEN, BLOOD 15 mg/dL (7-18)
[2017-01-27 12:21] LABS: ALANINE AMINOTRANSFERASE 20 U/L (12-78); ALKALINE PHOSPHATASE 70 U/L (46-116); ASPARTATE AMINOTRANSFERASE 11 U/L (15-37); BILIRUBIN,TOTAL 0.4 mg/dL (0.1-1.0)
[2017-01-27] MEDS: LORazepam 2 MG TABLET PO PRN ×2 (13:38→18:18)
[2017-01-27] MEDS: HALOPERIDOL 5 MG TABLET PO PRN ×2 (13:38→18:18)
[2017-01-27 15:20] LABS: AMPHET/METH SCREEN,URINE NEGATIVE (NEGATIVE); BARBITURATE SCREEN, URINE NEGATIVE (NEGATIVE); BENZODIAZEPINES SCREEN,URINE NEGATIVE (NEGATIVE); CANNABINOID SCREEN,URINE POSITIVE (NEGATIVE); COCAINE SCREEN,URINE NEGATIVE (NEGATIVE); METHADONE SCREEN, URINE NEGATIVE (NEGATIVE); OPIATE SCREEN,URINE NEGATIVE (NEGATIVE)
[2017-01-27 15:21] LABS: PHENCYCLIDINE SCREEN,URINE NEGATIVE (NEGATIVE)
[2017-01-27] MEDS: GABAPENTIN 400 MG CAPSULE PO SCH ×2 (16:25→17:00)
[2017-01-27 18:49] VITALS: BP 122/72
[2017-01-27] MEDS ORDERED: INFLUENZA VIRUS VACCINE QVS 2017-18 (3YR+)/PF 60 MCG/0.5 ML SYRINGE IM ONE (19:15)
[2017-01-27] MEDS: RisperiDONE 3 MG TABLET PO SCH (21:00)
[2017-01-28 06:25] VITALS: BP 116/68
[2017-01-28] MEDS: LORazepam 2 MG TABLET PO PRN ×2 (07:05→16:23)
[2017-01-28 08:20] LABS: HEMOGLOBIN A1C 5.4 % (4.5-6.2)
[2017-01-28 08:37] LABS: CHOL/HDL RATIO 2.7 (3.9-5.7); FREE T4 (FREE THYROXINE) 0.94 ng/dL (0.76-1.46); THYROID STIMULATING HORMONE 1.77 uIU/mL (0.36-3.74)
[2017-01-28 08:41] VITALS: BP 126/71
[2017-01-28] MEDS: RisperiDONE 3 MG TABLET PO SCH ×2 (09:00→20:06)
[2017-01-28] MEDS: ASPIRIN 81 MG CHEWABLE TABLET PO SCH (09:07)
[2017-01-28] MEDS: CITALOPRAM HYDROBROMIDE 20 MG TABLET PO SCH (09:07)
[2017-01-28] MEDS: GABAPENTIN 400 MG CAPSULE PO SCH ×3 (09:47→16:23)
[2017-01-28] MEDS ORDERED: METHOCARBAMOL 750 MG TABLET PO PRN (12:30)
[2017-01-28 14:45] VITALS: BP 122/70
[2017-01-28 16:16] VITALS: BP 115/69
[2017-01-28] MEDS: METHOCARBAMOL 500 MG TABLET PO PRN (16:24)
[2017-01-28] MEDS: ZOLPIDEM TARTRATE 10 MG TABLET PO PRN (21:08)
[2017-01-29 03:00] VITALS: BP 120/61
[2017-01-29] MEDS: LORazepam 2 MG TABLET PO PRN ×4 (03:07→20:50)
[2017-01-29] MEDS: ASPIRIN 81 MG CHEWABLE TABLET PO SCH (08:06)
[2017-01-29] MEDS: CITALOPRAM HYDROBROMIDE 20 MG TABLET PO SCH (08:06)
[2017-01-29] MEDS: GABAPENTIN 400 MG CAPSULE PO SCH ×3 (08:06→16:43)
[2017-01-29] MEDS: RisperiDONE 3 MG TABLET PO SCH ×2 (09:00→20:19)
[2017-01-29 09:03] VITALS: BP 119/66
[2017-01-29 16:13] VITALS: BP 119/83
[2017-01-29] MEDS: NICOTINE 14 MG/24 HOUR PATCH TD SCH (16:43)
[2017-01-29] MEDS: METHOCARBAMOL 500 MG TABLET PO PRN (17:10)
[2017-01-29] MEDS: ZOLPIDEM TARTRATE 10 MG TABLET PO PRN (21:01)
[2017-01-30 02:23] VITALS: BP 136/64
[2017-01-30] MEDS: METHOCARBAMOL 500 MG TABLET PO PRN ×3 (02:34→23:54)
[2017-01-30] MEDS: LORazepam 2 MG TABLET PO PRN ×4 (02:34→20:09)
[2017-01-30] MEDS: RisperiDONE 3 MG TABLET PO SCH ×2 (09:00→21:00)
[2017-01-30 09:13] LABS: APPEARANCE,URINE TURBID (CLEAR); BILIRUBIN,URINE NEGATIVE (NEGATIVE); GLUCOSE, URINE (UA) NEGATIVE (NEGATIVE); KETONES,URINE TRACE mg/dL (NEGATIVE); LEUKOCYTE ESTERASE ,URINE MODERATE (NEGATIVE); NITRATE,URINE NEGATIVE (NEGATIVE); OCCULT BLOOD,URINE LARGE (NEGATIVE); PROTEIN,URINE POS 1+ (NEGATIVE); UROBILINOGEN,URINE 0.2 mg/dL (<=1.0)
[2017-01-30] MEDS: GABAPENTIN 400 MG CAPSULE PO SCH ×3 (09:20→16:20)
[2017-01-30] MEDS: ASPIRIN 81 MG CHEWABLE TABLET PO SCH (09:20)
[2017-01-30] MEDS: CITALOPRAM HYDROBROMIDE 20 MG TABLET PO SCH (09:20)
[2017-01-30] MEDS: NICOTINE 14 MG/24 HOUR PATCH TD SCH (09:25)
[2017-01-30 09:29] LABS: RBC,URINE >100 /HPF (0-2)
[2017-01-30 09:30] LABS: BACTERIA,URINE Rare /HPF (None Seen); SQUAMOUS EPITHELIAL CELL,UR Few /LPF (None Seen)
[2017-01-30] MEDS: IBUPROFEN 600 MG TABLET PO PRN ×2 (10:20→21:12)
[2017-01-30] MEDS ORDERED: HEPATITIS A VACCINE, INACTI [ADULT] 1,440 UNITS/ML VIAL IM ONE (10:30)
[2017-01-30 10:40] VITALS: BP 125/72
[2017-01-30 11:08] LABS: HIV 1-2 SCREEN 4TH GEN W/RFLX Non Reactive (Non Reactive)
[2017-01-30] MEDS: ACETAMINOPHEN 325 MG TABLET PO PRN (11:26)
[2017-01-30] MEDS: CEPHALEXIN MONOHYDRATE 500 MG CAPSULE PO SCH ×3 (13:05→20:09)
[2017-01-30 16:30] VITALS: BP 132/76
[2017-01-30 21:12] VITALS: BP 130/81
[2017-01-30] MEDS: ZOLPIDEM TARTRATE 10 MG TABLET PO PRN (23:54)
[2017-01-31 01:22] VITALS: BP 122/67
[2017-01-31 08:30] VITALS: BP 109/87
[2017-01-31] MEDS: NICOTINE 14 MG/24 HOUR PATCH TD SCH (08:47)
[2017-01-31] MEDS: ASPIRIN 81 MG CHEWABLE TABLET PO SCH (08:47)
[2017-01-31] MEDS: CEPHALEXIN MONOHYDRATE 500 MG CAPSULE PO SCH ×4 (08:48→21:42)
[2017-01-31] MEDS: CITALOPRAM HYDROBROMIDE 20 MG TABLET PO SCH (08:48)
[2017-01-31] MEDS: LORazepam 2 MG TABLET PO PRN ×3 (08:48→21:42)
[2017-01-31] MEDS: GABAPENTIN 400 MG CAPSULE PO SCH ×3 (08:48→16:37)
[2017-01-31] MEDS: RisperiDONE 3 MG TABLET PO SCH ×2 (08:52→21:42)
[2017-01-31] MEDS: METHOCARBAMOL 500 MG TABLET PO PRN (16:37)
[2017-01-31 16:38] VITALS: BP 120/70
[2017-01-31] MEDS: ZOLPIDEM TARTRATE 10 MG TABLET PO PRN (21:42)
[2017-02-01 08:24] VITALS: BP 92/54
[2017-02-01] MEDS: RisperiDONE 3 MG TABLET PO SCH ×2 (09:00→20:28)
[2017-02-01] MEDS: CITALOPRAM HYDROBROMIDE 20 MG TABLET PO SCH (09:06)
[2017-02-01] MEDS: ASPIRIN 81 MG CHEWABLE TABLET PO SCH (09:06)
[2017-02-01] MEDS: CEPHALEXIN MONOHYDRATE 500 MG CAPSULE PO SCH ×4 (09:06→20:28)
[2017-02-01] MEDS: NICOTINE 14 MG/24 HOUR PATCH TD SCH (09:07)
[2017-02-01] MEDS: GABAPENTIN 400 MG CAPSULE PO SCH ×3 (09:07→16:25)
[2017-02-01] MEDS: LORazepam 2 MG TABLET PO PRN ×3 (10:03→20:28)
[2017-02-01 10:04] VITALS: BP 117/76
[2017-02-01] MEDS: IBUPROFEN 600 MG TABLET PO PRN ×2 (11:46→17:57)
[2017-02-01 11:47] VITALS: BP 110/16
[2017-02-01 16:25] VITALS: BP 119/68
[2017-02-01] MEDS: METHOCARBAMOL 500 MG TABLET PO PRN (16:25)
[2017-02-01 16:40] VITALS: BP 114/68
[2017-02-01 17:57] VITALS: BP 119/68
[2017-02-01] MEDS: ZOLPIDEM TARTRATE 10 MG TABLET PO PRN (21:02)
[2017-02-02 06:30] VITALS: BP 106/63
[2017-02-02 08:33] VITALS: BP 118/70
[2017-02-02] MEDS: CITALOPRAM HYDROBROMIDE 20 MG TABLET PO SCH (09:14)
[2017-02-02] MEDS: CEPHALEXIN MONOHYDRATE 500 MG CAPSULE PO SCH ×4 (09:14→20:10)
[2017-02-02] MEDS: ASPIRIN 81 MG CHEWABLE TABLET PO SCH (09:14)
[2017-02-02] MEDS: GABAPENTIN 400 MG CAPSULE PO SCH ×3 (09:14→16:50)
[2017-02-02] MEDS: LORazepam 2 MG TABLET PO PRN ×3 (09:14→20:10)
[2017-02-02] MEDS: RisperiDONE 3 MG TABLET PO SCH ×2 (09:14→21:00)
[2017-02-02] MEDS: METHOCARBAMOL 500 MG TABLET PO PRN (09:15)
[2017-02-02] MEDS: NICOTINE 14 MG/24 HOUR PATCH TD SCH (09:25)
[2017-02-02] MEDS: DOCUSATE SODIUM 250 MG CAPSULE PO SCH (10:39)
[2017-02-02] MEDS: IBUPROFEN 600 MG TABLET PO PRN (14:42)
[2017-02-02] MEDS: ZOLPIDEM TARTRATE 10 MG TABLET PO PRN (21:00)
[2017-02-03 03:36] VITALS: BP 117/66
[2017-02-03] MEDS: GABAPENTIN 400 MG CAPSULE PO SCH ×3 (09:17→16:16)
[2017-02-03] MEDS: CEPHALEXIN MONOHYDRATE 500 MG CAPSULE PO SCH ×4 (09:17→20:17)
[2017-02-03] MEDS: DOCUSATE SODIUM 250 MG CAPSULE PO SCH (09:17)
[2017-02-03] MEDS: RisperiDONE 2 MG TABLET PO SCH ×2 (09:17→20:17)
[2017-02-03] MEDS: ASPIRIN 81 MG CHEWABLE TABLET PO SCH (09:17)
[2017-02-03] MEDS: CITALOPRAM HYDROBROMIDE 20 MG TABLET PO SCH (09:17)
[2017-02-03] MEDS: NICOTINE 14 MG/24 HOUR PATCH TD SCH (09:18)
[2017-02-03] MEDS: LORazepam 2 MG TABLET PO PRN ×3 (09:20→20:17)
[2017-02-03] MEDS: METHOCARBAMOL 500 MG TABLET PO PRN ×2 (09:26→21:32)
[2017-02-03 10:00] VITALS: BP 121/63
[2017-02-03] MEDS: IBUPROFEN 600 MG TABLET PO PRN (10:23)
[2017-02-03 16:20] VITALS: BP 122/72
[2017-02-03] MEDS: ZOLPIDEM TARTRATE 10 MG TABLET PO PRN (20:17)
[2017-02-04 07:01] VITALS: BP 119/74
[2017-02-04] MEDS: CEPHALEXIN MONOHYDRATE 500 MG CAPSULE PO SCH (08:16)
[2017-02-04] MEDS: RisperiDONE 2 MG TABLET PO SCH ×2 (08:16→20:14)
[2017-02-04] MEDS: DOCUSATE SODIUM 250 MG CAPSULE PO SCH (08:16)
[2017-02-04] MEDS: LORazepam 2 MG TABLET PO PRN ×3 (08:16→20:13)
[2017-02-04] MEDS: METHOCARBAMOL 500 MG TABLET PO PRN ×2 (08:16→20:13)
[2017-02-04] MEDS: GABAPENTIN 400 MG CAPSULE PO SCH ×3 (08:16→16:20)
[2017-02-04] MEDS: ASPIRIN 81 MG CHEWABLE TABLET PO SCH (08:16)
[2017-02-04] MEDS: CITALOPRAM HYDROBROMIDE 20 MG TABLET PO SCH (08:16)
[2017-02-04] MEDS: NICOTINE 14 MG/24 HOUR PATCH TD SCH (08:17)
[2017-02-04 09:13] VITALS: BP 112/73
[2017-02-04] MEDS: ACETAMINOPHEN 325 MG TABLET PO PRN (09:29)
[2017-02-04 10:33] VITALS: BP 118/76
[2017-02-04] MEDS: IBUPROFEN 600 MG TABLET PO PRN (10:33)
[2017-02-04 16:16] VITALS: BP 119/69
[2017-02-04] MEDS: ZOLPIDEM TARTRATE 10 MG TABLET PO PRN (20:14)
[2017-02-05 07:21] VITALS: BP 109/69
[2017-02-05 08:30] VITALS: BP 125/63
[2017-02-05] MEDS: GABAPENTIN 400 MG CAPSULE PO SCH ×2 (08:34→12:31)
[2017-02-05] MEDS: DOCUSATE SODIUM 250 MG CAPSULE PO SCH (08:34)
[2017-02-05] MEDS: NICOTINE 14 MG/24 HOUR PATCH TD SCH (08:35)
[2017-02-05] MEDS: ASPIRIN 81 MG CHEWABLE TABLET PO SCH (08:36)
[2017-02-05] MEDS: RisperiDONE 2 MG TABLET PO SCH (08:36)
[2017-02-05] MEDS: CITALOPRAM HYDROBROMIDE 20 MG TABLET PO SCH (08:36)
[2017-02-05] MEDS: METHOCARBAMOL 500 MG TABLET PO PRN (08:38)
[2017-02-05] MEDS: LORazepam 2 MG TABLET PO PRN ×2 (08:40→12:58)
[2017-02-05] MEDS: IBUPROFEN 600 MG TABLET PO PRN (09:11)
[2017-02-05] MEDS ORDERED: DOCU250C91 PO (11:49)
[2017-02-05] MEDS ORDERED: RISP2 PO (11:49)
== END 2017-02-05 15:40 | disposition home or self-care (01) | DRG 885 ==
LOC: EMS 11:27 → B2X 16:40 → B3A 18:37
DX: F25.1 Schizoaffective disorder, depressive type (principal); Z91.14 Patient's other noncompliance with medication regimen; E55.9 Vitamin D deficiency, unspecified; N39.0 Urinary tract infection, site not specified; K21.9 Gastro-esophageal reflux disease without esophagitis; F12.90 Cannabis use, unspecified, uncomplicated; F32.9 Major depressive disorder, single episode, unspecified; F43.10 Post-traumatic stress disorder, unspecified; F60.3 Borderline personality disorder; G89.29 Other chronic pain; I10 Essential (primary) hypertension; K59.00 Constipation, unspecified; M47.9 Spondylosis, unspecified; F41.9 Anxiety disorder, unspecified; M54.9 Dorsalgia, unspecified; R26.9 Unspecified abnormalities of gait and mobility; Z76.5 Malingerer [conscious simulation]; Z79.899 Other long term (current) drug therapy; Z80.3 Family history of malignant neoplasm of breast; Z88.5 Allergy status to narcotic agent; Z79.82 Long term (current) use of aspirin; Z90.49 Acquired absence of other specified parts of digestive tract
CPT/HCPCS: 80074; 83036; 84439; 84443; 86592; 87081; 87389; 90471; 90632; 99285; G0480

== ENCOUNTER 2017-01-31 19:30 | Emergency (ER) | payer MEDICARE, OTHER ==
[~2017-01-31] VITALS: Ht 170.2 cm; Wt 63.6 kg
[2017-01-31 20:11] LABS: ANION GAP 6 mmol/L (8-16); CALCIUM, TOTAL 8.5 mg/dL (8.8-10.5); CARBON DIOXIDE 29 mmol/L (22-29); CHLORIDE 106 mmol/L (98-107); CREATININE 0.74 mg/dL (0.60-1.30); GLOMERULAR FILTR. RATE CALC > 60 mL/min (>60); GLUCOSE,RANDOM 106 mg/dL (70-110); POTASSIUM 4.3 mmol/L (3.5-5.1); SODIUM SERUM 141 mmol/L (136-145); UREA NITROGEN, BLOOD 14 mg/dL (7-18)
[2017-01-31 20:14] LABS: BASOPHILS % (AUTO) 1.2 % (0.0-2.0); EOSINOPHILS % (AUTO) 3.1 % (1.0-6.0); HEMATOCRIT 36.5 % (36-46); HEMOGLOBIN 12.6 g/dL (12.0-16.0); LYMPHOCYTES # (AUTO) 1.6 K/uL (1.0-4.8); LYMPHOCYTES % (AUTO) 32.3 % (22.0-44.0); MEAN CORPUSCULAR HEMOGLOBIN 32.6 pg (26.0-34.0); MEAN CORPUSCULAR HGB CONC 34.5 G/dL (31.0-37.0); MEAN CORPUSCULAR VOLUME 95 fL (80-100); MONOCYTES # (AUTO) 0.6 K/uL (0.1-1.0); MONOCYTES % (AUTO) 12.6 % (2.0-9.0); NEUTROPHILS # (AUTO) 2.4 K/uL (1.8-7.7); NEUTROPHILS % (AUTO) 50.8 % (40.0-70.0); PLATELET COUNT (AUTO) 228 K/uL (150-450); RED BLOOD CELL COUNT(AUTO) 3.86 MIL/uL (4.00-5.20); RED CELL DISTRIBUTION WIDTH 13.7 % (11.5-14.5)
[2017-01-31] MEDS ORDERED: KETOROLAC TROMETHAMINE 10 MG TABLET PO ONE (20:15)
[2017-01-31 20:18] LABS: ALANINE AMINOTRANSFERASE 15 U/L (12-78); ALBUMIN 3.2 g/dL (3.4-5.0); ALKALINE PHOSPHATASE 58 U/L (46-116); ASPARTATE AMINOTRANSFERASE 11 U/L (15-37); BILIRUBIN,TOTAL 0.2 mg/dL (0.1-1.0); TOTAL PROTEIN, SERUM 6.1 g/dL (6.4-8.2)
[2017-01-31 20:46] VITALS: BP 111/78
[2017-01-31 21:06] LABS: APPEARANCE,URINE CLEAR (CLEAR); BILIRUBIN,URINE NEGATIVE (NEGATIVE); GLUCOSE, URINE (UA) NEGATIVE (NEGATIVE); KETONES,URINE NEGATIVE (NEGATIVE); LEUKOCYTE ESTERASE ,URINE NEGATIVE (NEGATIVE); NITRATE,URINE NEGATIVE (NEGATIVE); OCCULT BLOOD,URINE NEGATIVE (NEGATIVE); PROTEIN,URINE NEGATIVE (NEGATIVE); UROBILINOGEN,URINE 0.2 mg/dL (<=1.0)
[2017-01-31 21:22] LABS: SQUAMOUS EPITHELIAL CELL,UR Few /LPF (None Seen)
[2017-01-31 21:23] LABS: BACTERIA,URINE Few /HPF (None Seen); RBC,URINE 0-2 /HPF (0-2); WBC,URINE 0-2 /HPF (0-5)
[2017-01-31 21:30] LABS: AMPHET/METH SCREEN,URINE NEGATIVE (NEGATIVE); BARBITURATE SCREEN, URINE NEGATIVE (NEGATIVE); BENZODIAZEPINES SCREEN,URINE NEGATIVE (NEGATIVE); CANNABINOID SCREEN,URINE NEGATIVE (NEGATIVE); COCAINE SCREEN,URINE NEGATIVE (NEGATIVE); METHADONE SCREEN, URINE NEGATIVE (NEGATIVE); OPIATE SCREEN,URINE NEGATIVE (NEGATIVE); PHENCYCLIDINE SCREEN,URINE NEGATIVE (NEGATIVE)
== END 2017-01-31 21:05 | disposition home or self-care (01) ==
LOC: EMS 19:32
DX: M54.5 Low back pain (principal); G89.29 Other chronic pain; I10 Essential (primary) hypertension; I25.2 Old myocardial infarction
CPT/HCPCS: 99284

== ENCOUNTER 2018-11-14 13:40 | Emergency (ER) | payer MEDICARE, OTHER ==
[~2018-11-14] VITALS: Ht 162.6 cm; Wt 72.7 kg
[~2018-11-14 13:40] MED LIST changes: +CITA-106 PO; -CITA20TA9 PO; +DOCU250C91 PO; -MET750 PO; +RISP2 PO; -RISP3 PO
[2018-11-14] MEDS ORDERED: LORA2TAB2 PO (14:05)
[2018-11-14] MEDS ORDERED: SODIUM CHLORIDE 0.9% 1,000 ML IV ONE ×2 (14:15→15:30)
[2018-11-14] MEDS ORDERED: KETOROLAC TROMETHAMINE 30 MG/ML VIAL IVP ONE ×2 (14:15→16:45)
[2018-11-14 14:20] LABS: BASOPHILS % (AUTO) 0.9 % (0.0-2.0); EOSINOPHILS % (AUTO) 0.5 % (1.0-6.0); HEMATOCRIT 34.1 % (36-46); HEMOGLOBIN 11.6 g/dL (12.0-16.0); LYMPHOCYTES # (AUTO) 1.1 K/uL (1.0-4.8); LYMPHOCYTES % (AUTO) 20.6 % (22.0-44.0); MEAN CORPUSCULAR HEMOGLOBIN 31.7 pg (26.0-34.0); MEAN CORPUSCULAR HGB CONC 34.1 G/dL (31.0-37.0); MEAN CORPUSCULAR VOLUME 93 fL (80-100); MONOCYTES # (AUTO) 0.8 K/uL (0.1-1.0); MONOCYTES % (AUTO) 13.8 % (2.0-9.0); NEUTROPHILS # (AUTO) 3.5 K/uL (1.8-7.7); NEUTROPHILS % (AUTO) 64.2 % (40.0-70.0); PLATELET COUNT (AUTO) 220 K/uL (150-450); RED BLOOD CELL COUNT(AUTO) 3.66 MIL/uL (4.00-5.20); RED CELL DISTRIBUTION WIDTH 12.6 % (11.5-14.5)
[2018-11-14 14:29] LABS: ANION GAP 8 mmol/L (8-16); CALCIUM, TOTAL 8.4 mg/dL (8.8-10.5); CARBON DIOXIDE 25 mmol/L (22-29); CHLORIDE 106 mmol/L (98-107); CREATININE 0.79 mg/dL (0.60-1.30); GLOMERULAR FILTR. RATE CALC > 60 mL/min (>60); GLUCOSE,RANDOM 109 mg/dL (70-110); POTASSIUM 3.7 mmol/L (3.5-5.1); SODIUM SERUM 139 mmol/L (136-145); UREA NITROGEN, BLOOD 11 mg/dL (7-18)
[2018-11-14 14:41] LABS: ALANINE AMINOTRANSFERASE 42 U/L (12-78); ALBUMIN 3.6 g/dL (3.4-5.0); ALKALINE PHOSPHATASE 59 U/L (46-116); ASPARTATE AMINOTRANSFERASE 28 U/L (15-37); BILIRUBIN,TOTAL 0.5 mg/dL (0.1-1.0); HCG,QUANTITATIVE < 1 mIU/mL (0-6); LIPASE 100 U/L (73-393); TOTAL PROTEIN, SERUM 6.5 g/dL (6.4-8.2)
[2018-11-14 15:40] LABS: AMPHET/METH SCREEN,URINE POSITIVE (NEGATIVE); BARBITURATE SCREEN, URINE NEGATIVE (NEGATIVE); BENZODIAZEPINES SCREEN,URINE NEGATIVE (NEGATIVE); CANNABINOID SCREEN,URINE POSITIVE (NEGATIVE); COCAINE SCREEN,URINE NEGATIVE (NEGATIVE); METHADONE SCREEN, URINE NEGATIVE (NEGATIVE); OPIATE SCREEN,URINE NEGATIVE (NEGATIVE)
[2018-11-14 15:42] LABS: PHENCYCLIDINE SCREEN,URINE NEGATIVE (NEGATIVE)
[2018-11-14 15:46] LABS: BILIRUBIN,URINE NEGATIVE (NEGATIVE); GLUCOSE, URINE (UA) NEGATIVE (NEGATIVE); KETONES,URINE NEGATIVE (NEGATIVE); LEUKOCYTE ESTERASE ,URINE NEGATIVE (NEGATIVE); NITRATE,URINE NEGATIVE (NEGATIVE); OCCULT BLOOD,URINE NEGATIVE (NEGATIVE); PH,URINE 6.5 (5.0-8.0); PROTEIN,URINE NEGATIVE (NEGATIVE); UROBILINOGEN,URINE 0.2 mg/dL (<=1.0)
[2018-11-14 16:05] LABS: APPEARANCE,URINE HAZY (CLEAR)
[2018-11-14 16:55] VITALS: BP 129/85
== END 2018-11-14 17:01 | disposition home or self-care (01) ==
LOC: EMS 13:41
DX: R10.12 Left upper quadrant pain (principal); F32.9 Major depressive disorder, single episode, unspecified; F41.9 Anxiety disorder, unspecified; I10 Essential (primary) hypertension; I25.2 Old myocardial infarction; G89.29 Other chronic pain; Z88.5 Allergy status to narcotic agent; Z91.010 Allergy to peanuts
CPT/HCPCS: 36415; 74176; 80053; 80307; 81003; 83690; 84702; 85025; 96374; 96376; 99284; J1885; J7030

== ENCOUNTER 2023-05-09 16:01 | Emergency (ER) | payer MEDICARE, OTHER ==
[~2023-05-09] VITALS: Ht 170.2 cm; Wt 88.6 kg
[~2023-05-09 16:01] MED LIST changes: -ASPI-1182 PO; +ASPI-1444 PO; -CITA-106 PO; +CITA-144 PO; -DOCU250C91 PO; +GABA-1201 PO; -GABA-533 PO; +LORA-1001 PO; -RISP2 PO
[2023-05-09 16:28] LABS: COVID AG,FIA SOURCE NASAL SWAB
[2023-05-09 16:46] LABS: SARS-COV2 (COVID) ANTIGEN,FIA Negative (Negative)
[2023-05-09 17:49] VITALS: BP 109/65; PULSE 86; RESP 16; TEMP 98.9
[2023-05-09] MEDS ORDERED: IBUP-1493 PO (18:00)
[2023-05-09] MEDS ORDERED: LISI-660 PO (18:00)
[2023-05-09] MEDS ORDERED: KETOROLAC TROMETHAMINE 30 MG/ML VIAL IM ONE (18:00)
== END 2023-05-09 18:36 | disposition home or self-care (01) ==
LOC: EMS 16:02
DX: G89.29 Other chronic pain (principal); M54.9 Dorsalgia, unspecified; F32.A Depression, unspecified; I10 Essential (primary) hypertension; Z88.5 Allergy status to narcotic agent; Z91.010 Allergy to peanuts; Z20.822 Contact with and (suspected) exposure to COVID-19
CPT/HCPCS: 99284; 87426; 93005; 96372; J1885

== ENCOUNTER 2023-08-25 17:25 | Emergency (ER) | payer MEDICARE, OTHER ==
[~2023-08-25] VITALS: Ht 165.1 cm; Wt 77.3 kg
[~2023-08-25 17:25] MED LIST changes: -ASPI-1444 PO; -CITA-144 PO; -GABA-1201 PO; +LISI-660 PO; -LORA-1001 PO; +RISP-31 PO
[2023-08-25 18:08] VITALS: BP 123/98; PULSE 100; RESP 18; TEMP 98.4
[2023-08-25 18:56] LABS: PH,URINE DRUG SCREEN 6.5 (5.0-8.0)
[2023-08-25 19:09] LABS: AMPHET/METH SCREEN,URINE NEGATIVE (NEGATIVE); BARBITURATE SCREEN, URINE NEGATIVE (NEGATIVE); BENZODIAZEPINES SCREEN,URINE NEGATIVE (NEGATIVE); CANNABINOID SCREEN,URINE NEGATIVE (NEGATIVE); COCAINE SCREEN,URINE NEGATIVE (NEGATIVE); METHADONE SCREEN, URINE NEGATIVE (NEGATIVE); OPIATE SCREEN,URINE NEGATIVE (NEGATIVE); PHENCYCLIDINE SCREEN,URINE NEGATIVE (NEGATIVE)
[2023-08-25 19:11] LABS: ALCOHOL, URINE DRUG SCREEN NEGATIVE (NEGATIVE)
[2023-08-25 19:53] LABS: BASOPHILS % (AUTO) 0.6 % (0.0-2.0); EOSINOPHILS % (AUTO) 0.4 % (1.0-6.0); HEMATOCRIT 40.7 % (36-46); HEMOGLOBIN 13.9 g/dL (12.0-16.0); LYMPHOCYTES # (AUTO) 1.5 K/uL (1.0-4.8); LYMPHOCYTES % (AUTO) 25.4 % (22.0-44.0); MEAN CORPUSCULAR HEMOGLOBIN 32.3 pg (26.0-34.0); MEAN CORPUSCULAR HGB CONC 34.2 G/dL (31.0-37.0); MEAN CORPUSCULAR VOLUME 94 fL (80-100); MONOCYTES # (AUTO) 0.5 K/uL (0.1-1.0); MONOCYTES % (AUTO) 9.2 % (2.0-9.0); NEUTROPHILS # (AUTO) 3.8 K/uL (1.8-7.7); NEUTROPHILS % (AUTO) 64.4 % (40.0-70.0); PLATELET COUNT (AUTO) 266 K/uL (150-450); RED BLOOD CELL COUNT(AUTO) 4.31 MIL/uL (4.00-5.20); RED CELL DISTRIBUTION WIDTH 12.8 % (11.5-14.5)
[2023-08-25 20:01] LABS: ANION GAP 8 mmol/L (8-16); CARBON DIOXIDE 26 mmol/L (22-29); CHLORIDE 103 mmol/L (98-107); CREATININE 0.76 mg/dL (0.60-1.30); GLOMERULAR FILTR. RATE CALC > 60 mL/min (>60); GLUCOSE,RANDOM 106 mg/dL (70-110); SODIUM SERUM 137 mmol/L (136-145); UREA NITROGEN, BLOOD 16 mg/dL (7-18)
[2023-08-25 20:09] LABS: ALCOHOL, BLOOD (SERUM) < 3 mg/dL (0-10)
[2023-08-25] MEDS ORDERED: IBUPROFEN 800 MG TABLET ONE (20:24)
[2023-08-25] MEDS ORDERED: HYDR50CA6 PO (20:28)
[2023-08-25] MEDS ORDERED: RISP3TAB35 PO (20:28)
[2023-08-25] MEDS: IBUPROFEN 800 MG TABLET PO ONE (20:28)
[2023-08-25] MEDS ORDERED: CITA-144 PO (20:28)
== END 2023-08-25 21:55 | disposition admitted as inpatient to this hospital (09) ==
LOC: EMS 17:38
DX: F20.9 Schizophrenia, unspecified (principal); R45.851 Suicidal ideations; I10 Essential (primary) hypertension; F32.A Depression, unspecified; K21.9 Gastro-esophageal reflux disease without esophagitis; I25.2 Old myocardial infarction; Z88.5 Allergy status to narcotic agent; Z91.010 Allergy to peanuts
CPT/HCPCS: 99285; 80048; 84703; 85025; 36415; 80307; G0480